=== PATIENT | female | born 1980 | race Hispanic/Latino ===

== ENCOUNTER 2019-03-30 00:42 | Emergency (ER) | payer OTHER ==
[~2019-03-30] VITALS: Ht 162.6 cm; Wt 108.9 kg
[2019-03-30] MEDS ORDERED: PANTOPRAZOLE 40 MG 10ML VIAL IV STA (01:16)
[2019-03-30] MEDS ORDERED: PANTOPRAZOLE 40 MG 10ML VIAL ONE (01:45)
[2019-03-30 02:17] VITALS: BP 125/70
== END 2019-03-30 02:30 | disposition home or self-care (01) ==
LOC: FSED 00:42
DX: K21.0 Gastro-esophageal reflux disease with esophagitis (principal); K29.00 Acute gastritis without bleeding
CPT/HCPCS: 96374; 99283; C9113